=== PATIENT | male | born 1970 | race Caucasian/White ===

== ENCOUNTER 2019-01-09 13:23 | Emergency (ER) | payer SELFPAY ==
[2019-01-09] MEDS ORDERED: Albuterol 2.5 MG/3 ML NEB.SOL* (0.083%) INH ONE ×2 (13:29→14:21)
--- NOTE | 2019-01-09 13:33 | UC ---
General HPI - HPI Summary HPI Summary: pt states he has had a cough x 2 months. he went to his pcp about 2 weeks ago, they tx with an inhaler and zpak. the inhaler helped at first but not now. the zpak did not seem to do anything. 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 he states he nearly passed out with that cough. +SOB, wheezing. no fever or hx heart disease. - History of Current Complaint Stated Complaint: SOB,COUGH Time Seen by Provider: 01/09/19 13:28 Hx Obtained From: Patient Onset/Duration: Gradual Onset Timing: Constant Associated Signs & Symptoms: Positive: Cough, SOB, Wheezing. Negative: Diaphoresis, Fever - Allergy/Home Medications Allergies/Adverse Reactions: Allergies Allergy/AdvReac Type Severity Reaction Status Date / Time No Known Allergies Allergy Verified 08/24/18 10:51 Home Medications: Home Medications FLUoxetine CAP* [PROzac CAP*] 20 mg PO DAILY 01/09/19 [History Confirmed ] Nebivolol HCl [Bystolic] 5 mg PO DAILY 01/09/19 [History Confirmed 01/09/19] PMH/Surg Hx/FS Hx/Imm Hx - Additional Past Medical History Additional PMH: Lyme disease with chronic fatigue Cardiovascular History: Hypertension Respiratory History: Bronchitis - Surgical History Surgical History: Yes Surgery Procedure, Year, and Place: RIGHT 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 ORAL SURGERY 1985 Review of Systems All Other Systems Reviewed And Are Negative: Yes Constitutional: Positive: Fatigue - chronic Respiratory: Positive: Shortness Of Breath, Cough Musculoskeletal: Negative: Edema Physical Exam Triage Information Reviewed: Yes Appearance: Well-Appearing Vital Signs Reviewed: Yes Eyes: Positive: Conjunctiva Clear ENT: Positive: Normal ENT inspection Neck: Positive: Supple, Nontender, No Lymphadenopathy Respiratory: Positive: Decreased breath sounds, Other: - NPC. Mild dyspnea with conversation.. Negative: Crackles, Rhonchi, Wheezing Cardiovascular: Positive: RRR, No Murmur Abdomen Description: Positive: Nontender Bowel Sounds: Positive: Present Musculoskeletal: Positive: ROM Intact, No Edema Neurological: Positive: Alert Psychological: Positive: Age Appropriate Behavior Skin Exam: Normal Diagnostics - Radiology No standard instances Radiology Interpretation Completed By: Radiologist - cxr=Stigmata of potential chronic obstructive pulmonary disease. No acute cardiopulmonary process evident. - EKG Cardiac Rate: NL Cardiac Rhythm: Sinus: Normal Ectopy: None ST Segment: Normal Summary of EKG Findings: Q waves III, AVF Re-Evaluation - Re-Evaluation First Eval Re-Evaluation Time: 14:23 Change: Improved - SPEAKS EASILY WITH NO SOB. COUGH IS MORE LOOSE AND HE IS RAISING SECRETIONS. FAINT INSP CRACKLES/WHEEZES ON R. Second Eval Re-Evaluation Time: 15:16 Change: Improved - aeration continues to improve. lungs are now clear. Course/Dx - Course Course Of Treatment: 3rd set of VS are much improved. cxr=nad appropriate for out pt tx. - Differential Dx - Multi-Symptom Differential Diagnoses: Other - no concern for cardiac pathology or PE. no infiltrate on cxr. - Diagnoses Provider Diagnosis: Bronchospasm, Cough Discharge - Sign-Out/Discharge Documenting (check all that apply): Patient Departure All imaging exams completed and their final reports reviewed: Yes - Discharge Plan Condition: Stable Disposition: HOME Prescriptions: predniSONE TAB* [Deltasone TAB*] 50 mg PO DAILY #7 tab Patient Education Materials: Acute Cough (ED), Bronchospasm (ED) Referrals: Ele Kimball PA [Primary Care Provider] - Additional Instructions: START THE PREDNISONE TOMORROW. USE THE RESCUE INHALER 2 PUFFS EVERY 6 HOURS. GO TO THE ER FOR ANY WORSENING. FOLLOW UP WITH YOUR PRIMARY CARE IN 5-7 DAYS. - Billing Disposition and Condition Condition: STABLE Disposition: Home
[2019-01-09] MEDS ORDERED: predniSONE TAB* 20 MG PO ONE (13:37)
--- OUTSIDE RECORDS SUMMARY | 2019-01-09 14:08 | XMS REPORT | Continuity of Care Document ---
:1970 External Reference #:[id number] Author Name Ele Kimball PA Address [address] [place] [address] Care Team Providers Name Role Phone Johan DO Glen Care Team Information Manager Educational Unavailable Payers Date Identification Numbers Payment Provider Subscriber PayID: [id number] Self Pay Doc Benítez Expires: 2018 Policy Number: [id number] [facility] Ppo Doc Benítez PayID: [id number] [address] [address] [place] [phone] Advance Directives Description No Information Available Problems Description No Information Family History Date Family Member(s) Observation Comments Father Diabetes, Juvenile Father Hypertension Mother Asthma Mother Allergies Mother Hypertension Mother Thyroid Disease Mother Hypercholesterolemia Paternal Grandfather due to [place] () Social History Type Date Description Comments Sex Unknown Education Higest level completed, Bachelor's Degree Marital Status Work Status Currently Working Graphic Design ETOH Use Occasionally consumes alcohol Tobacco Use Start: Unknown Patient has never smoked Allergies, Adverse Reactions, Alerts Date Description Reaction Status Severity Comments 01/28/2018 Seasonal Active 01/28/2018 Dust Active Medications Medication Date Status Form Strength Qnty SIG Indications Ordering Provider Azithromycin 12/23/ Active Tablets 250mg 6tabs 2 tablets R05 Johan, 2019 by mouth Glen, on day 1 DO then 1 tablet on days 2-5 Albuterol 12/23/ Active Aerosol 108(90Base 8units 2 puffs R05 Prado, Sulfate HFA 2019 ) mcg/Act every 4-6 nimco Carrlol as DO needed for cough, wheezing, shortness of breath Fluoxetine HCL 10/27/ Active Capsules 20mg 184cap Take 1 F41.1 Prado, 2018 s Capsule By Glen, Mouth DO Every Day. May Increase To 2 Capsule Daily as Needed Esomeprazole 01/28/ Active Capsules 40mg 90caps 1 by mouth Prado, Magnesium 2017 every day Geln, leenan DO Tumeric 01/28/ Active 1 by mouth Prado, 2017 every day Glen, DO Coq10 01/28/ Active Capsules 100mg 1 by mouth Prado, 2017 every day Glen, DO Probiotic 01/28/ Active Capsules Prado, Complex 2017 Glen, Acidophilus DO Dhea 01/28/ Active Capsules 10mg 1 by mouth Prado, 2017 three Glen, times a DO day Tri-Salts 01/28/ Active Prado, 2017 Glen, DO Vitamin K2 01/28/ Active Capsules 100mcg 1 by mouth Prado, 2017 every day Glen, DO 5000 01/28/ Active Prado, 2017 Glen, DO Trace Elements 01/28/ Active Solution 1-100-30-5 Prado, Complex 2017 00mcg/ML Glen, DO B Complex 01/28/ Active Capsules 1 by mouth Prado, 2017 every day Glen, Without B6 DO Ibuprofen 01/28/ Active Capsules 200mg as needed Prado, 2017 Glen, Theratears 01/28/ Active Solution 0.25% 15ml 1 drop in Prado, 2017 each eye Glen, four times DO a day as needed Vitamin D3 01/28/ Active Liquid 2 gtts bid Prado, Complete 2017 DO Glen Bystolic / Active Tablets 10mg 1 by mouth Unknown 0000 every day Escitalopram 10/27/ Hx Tablets 10mg 30tabs 1 by mouth F41.1 Prado, Oxalate 2018 - every day Glen, 2018 Citalopram 10/27/ Hx Tablets 10mg 30tabs 1 by mouth F41.1 Prado, Hydrobromide 2018 - once daily Glen, 2018 Paroxetine HCL 10/24/ Hx Tablets 10mg 90tabs Take 1 F41.1 Prado, 2018 - Tablet By Glen, 10/27/ Mouth DO 2018 Every Morning D-Ribose 01/28/ Hx Powder Prado, 2017 - Glen, 2018 R-Lipoic A 01/28/ Hx Prado, 2018 - Glen, 2018 Acetyl 01/28/ Hx Capsules 500mg twice a Prado, L-Carnitine 2017 - day Glen, 2018 Triamcinolone 01/28/ Hx Aerosol 55mcg/Act 1canis 2 sprays Prado, Acetonide 2018 - ter each Glen, 10/24/ nostril DO 2018 every day Crytoplus 01/28/ Hx 10 gtts Prado, 2018 - bid Glen, 2018 Burbur 01/28/ Hx Liquid 10 gtts Prado, 2018 - bid Glen, 2018 Samento 01/28/ Hx 10gtts bid Prado, 2017 - Glen, 2018 Fluoxetine HCL 01/28/ Hx Capsules 20mg 90caps 1 By Mouth Prado, (PMDD) 2018 - Every Day Glen, 2018 Amlodipine / Hx Tablets 10mg 1 by mouth Unknown Besylate 0000 - every day 2018 Immunizations CPT Code Status Date Vaccine Lot # [id number] Refused 10/24/2018 Influenza Vac, Quadrivalent, Split, 0.5mL Dosage, Im Use Vital Signs Date Vital Result Comment 12/23/2018 8:05am Body Temperature 97.9 F tympanic Weight 271.00 lb Heart Rate 80 /min BP Systolic 132 mmHg BP Diastolic 82 mmHg Respiratory Rate 18 /min Height 69 inches 5'9" O2 % BldC Oximetry 94 % Room Air BMI (Body Mass Index) 40.0 kg/m2 10/24/2018 8:13am Weight 276.00 lb Heart Rate 80 /min BP Systolic 134 mmHg BP Diastolic 90 mmHg Respiratory Rate 18 /min Height 69 inches 5'9" BMI (Body Mass Index) 40.8 kg/m2 01/28/2018 11:10am Weight 262.00 lb Heart Rate 80 /min BP Systolic 134 mmHg BP Diastolic 94 mmHg Respiratory Rate 18 /min Height 69 inches 5'9" BMI (Body Mass Index) 38.7 kg/m2 Results Test Date Facility Test Result H/L Range Note CBC with Auto 02/07/2018 [facility] White Blood 6.5 K/uL N 3.4-10.5 Diff-fcmg (315)- - Count Red Blood Count 5.30 M/uL N 4.20-5.80 Hemoglobin 16.0 gm/dL N 12.8-17.0 Hematocrit 46.2 % N 38.0-48.0 Mean Cell Volume 87.2 fl N 80.0-96.0 Mean Corpuscular HGB 30.2 pg N 27.0-33.0 Mean Corpuscular HGB Conc 34.6 g/dL N 31.7-36.0 Platelet Count 209 K/uL N 155-360 Red Cell Distri Width SD 42.2 fl N 36-51 Red Cell Distri Width %CV 13.7 % N 11.6-15.8 Mean Platelet Volume 10.2 fL N 6.6-10.6 Neut% 54.6 % N 33.0-73.0 Lymph % 30.3 % N 20.0-42.0 Hinds % 8.0 % N 0.0-10.0 Eo% 6.8 % High 0.0-6.6 Bas% 0.3 % N 0.0-1.1 Neut# 3.53 K/uL N 1.8-7.0 Lymph # 1.96 K/uL N 1.0-4.0 Hinds # 0.52 K/uL N 0.0-0.8 Eos # 0.44 K/uL N 0.0-0.5 Baso # 0.02 K/uL N 0.0-0.1 Laboratory test 02/07/2018 [facility] Slide Review (SEE NOTE) 1 finding (315)- - LDL Cholesterol 02/07/2018 [facility] Cholesterol 272 mg/ dL High <200 2, 3 Profile (315)- - Triglycerides 365 mg/dL High <150 4 HDL Cholesterol 45 mg/dL >40 5 LDL-Cholesterol 154 mg/dL < 100 6 1 Instrument flagged sample for slide review. Less than 10% Bands seen, no other immature WBC's seen. RBC morphology essentially normal. Platelet estimate=NORMAL 2 I10,E78.2,R00.2,Z00.00 3 Reference Guidelines*: Desirable: ........... < 200 mg/dL Borderline High: ..... 200-239 mg/dL High: ................ >=240 mg/dL * The National Cholesterol Education Program (NCEP) 4 Reference Guidelines*: Normal: ............. < 150 mg/dL Borderline High: .... 150-199 mg/dL High: ............... 200-499 mg/dL Very High: .......... > 500 mg/dL * Source: National Cholesterol Education Program (NCEP) 5 Reference Guidelines*: Low HDL: ..... < 40 mg/dL Normal: ..... 40-60 mg/dL Desirable: ... > 60 mg/dL *The National Cholesterol Education Program(NCEP) 6 Reference Guidelines*: Optimal:........... <100 mg/dL Near Optimal....... 100-129 mg/dL Borderline High.... 130-159 mg/dL High............... 160-189 mg/dL Very High.......... >=190 mg/dL * Source: National Cholesterol Education Program (NCEP) Procedures Date Code Description Status 12/23/2018 90475 Measure Blood Oxygen Level Single Determination Completed 01/28/2018 77656 Brief Emotional/Behav Assessment W/ Scoring Doc Per Completed Standard Inst Encounters Type Date Location Provider Dx Diagnosis Office Visit 10/24/2018 [facility] Ele Kimball PA F41.1 Generalized anxiety 8:15a disorder R51 Headache I10 Essential (primary) hypertension R20.2 Paresthesia of skin R53.83 Other fatigue Z68.41 Body mass index (BMI) 40.0-44.9, adult Office Visit 01/28/2018 11:00a [facility] Ele Kimball PA Z00.00 Encntr for general adult medical exam w/o abnormal findings A69.20 Lyme disease, unspecified Z13.89 Encounter for screening for other disorder I10 Essential (primary) hypertension F41.1 Generalized anxiety disorder 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0-44.9, adult
[2019-01-09 15:30] VITALS: BP 135/91
== END 2019-01-09 15:45 | disposition home or self-care (01) ==
LOC: UCCORT 13:23
DX: J98.01 Acute bronchospasm (principal); R05 Cough; I10 Essential (primary) hypertension; J42 Unspecified chronic bronchitis; R53.82 Chronic fatigue, unspecified
CPT/HCPCS: 71046; 93005; 99213; G0463; J7512